=== PATIENT | male | born 1955 | race Caucasian/White ===

== ENCOUNTER 2024-10-28 12:45 | Emergency (ER) | payer MEDICARE, OTHER, MEDICAID, SELFPAY ==
[2024-10-28] VITALS (9 sets, daily range): BP systolic 124–155; BP diastolic 83–90; PULSE 60–63; RESP 14–21; TEMP 36.7; O2SAT 91–98
--- NOTE | ~2024-10-28 | XR_ITS ---
EXAMINATION: XR chest 2V DATE: 10/28/2024 13:37 INDICATION: Weakness TECHNIQUE: AP and lateral views of the chest were obtained. COMPARISON: None FINDINGS: Lung volumes appear decreased on the frontal projection due to lordotic positioning. There is linear bandlike discoid atelectasis at the lingula. No other airspace opacities, pulmonary edema, pleural ef fusion or pneumothorax. Cardiomediastinal silhouette is within normal limits for AP technique. Likely ventriculoperitoneal shunt catheter projects of the right-sided the neck, anterior chest and abdomen . IVC filter projecting anterior to the lumbar spine on the lateral projection. T12 compression fract ure with 40% anterior vertebral body height loss. IMPRESSION: 1. Lingular discoid atelectasis. No other acute cardiopulmonary disease. Reviewed, dictated and finalized at location A. NT DEVELOPMENT ANALYST
[2024-10-28] MEDS: SODIUM CHLORIDE 0.9% IV 1,000 ML 999 ML IV CONT (13:08)
[2024-10-28 13:10] LABS: Basophils Percent Auto 0.4 % (0.2-1.2); Eosinophils Absolute Auto 0.1 K/mm3 (0-0.3); Eosinophils Percent Auto 1.2 % (0-4.4); Hematocrit 35.3 % (42.0-52.0); Hemoglobin 11.5 g/dL (14.0-18.0); Immature Granulocyte Absolute 0.02 K/mm3 (0.00-0.031); Immature Granulocyte Percent A 0.3 % (0-0.5); Lymphocytes Absolute Auto 0.89 K/mm3 (0.9-3.2); Lymphocytes Percent Auto 12.1 % (18.3-44.2); Mean Corpuscular HGB Conc 32.6 g/dl (32-36); Mean Corpuscular Hemoglobin 31.5 pg (26-34); Mean Corpuscular Volume 96.7 fl (80-100); Mean Platelet Volume 11.7 fl (7.4-10.4); Monocytes Absolute Auto 0.5 K/mm3 (0.1-0.6); Monocytes Percent Auto 7.2 % (2.6-8.5); Neutrophils Absolute Auto 5.8 K/mm3 (1.3-6.7); Neutrophils Percent Auto 78.8 % (45.5-73.1); Platelet Count Result 105 k/mm3 (150-375); Red Blood Count 3.65 M/mm3 (4.6-6.20); Red Cell Distribution Width 14.3 % (11.5-14.5); White Blood Count 7.4 K/mm3 (4.5-10.0)
[2024-10-28 13:19] LABS: Alanine Aminotransferase 18 U/L (6-50); Albumin Level 3.3 g/dL (3.5-5.1); Alkaline Phosphatase 129 U/L (38-126); Anion Gap 2 mmol/L (4-12); Aspartate Amino Transferase 36 U/L (17-59); Bilirubin,Total 0.4 mg/dL (0.2-1.3); Blood Urea Nitrogen 17 mg/dL (9-20); Calcium 8.3 mg/dL (8.4-10.2); Carbon Dioxide 28 mmol/L (22-30); Chloride 111 mmol/L (98-107); Estimated CRCL calculation 63 ml/min; Estimated Glomerular Filt Rate > 60; Glucose 245 mg/dL (65-110); Potassium 4.1 mmol/L (3.4-5.0); Sodium 141 mmol/L (137-145)
--- NOTE | 2024-10-28 13:43 | ED_ITS ---
HPI - General Adult General Chief complaint: Unspecified Stated complaint: lethargic Time Seen by Provider: 10/28/24 12:49 History of Present Illness HPI narrative: Patient is a 69-year-old male who presents ER with weakness. He comes from his memory care. Railroad x2. Has no complaints other than feeling tired. He does appear dry. He is denying any pain in his chest or abdomen. He is not struggling to breathe. Related Data Allergies Allergy/AdvReac Type Severity Reaction Status Date / Time No Known Allergies Allergy Verified 10/28/24 13:07 Review of Systems 2 Review of Systems: ROS unobtainable: Yes unobtainable due to mental status PMFSH Past Medical History Medical History (Updated 10/28/24 @ 15:25 by Jorge Myles MD) Chronic diastolic heart failure Depression Anxiety Hx of schizophrenia Hyperlipidemia Diabetes BPH (benign prostatic hyperplasia) Dementia Exam 2 Narrative: GENERAL: Chronically ill-appearing, well-nourished, and in no acute distress. HEAD: Normocephalic, atraumatic. EYES: PERRLA and EOMI. ENT: Dry mucous membranes. CHEST: Clear to auscultation. No respiratory distress. HEART: Regular rate and rhythm. Normal peripheral pulses. ABDOMEN: Soft, nontender, nondistended. EXTREMITIES: Normal range of motion. No edema. SKIN: Warm, dry, no rash. NEURO: Alert and oriented x2. PSYCH: Normal mood and affect. Course Course Emergency Course: Unremarkable evaluation. Patient resting comfortably and still not complaining. No hypoxia. No hypertension. Heart rate stable. Discharge back to facility. Vital Signs Vital signs: Vital Signs Temperature 98.0 F 10/28/24 12:42 Pulse Rate 60 10/28/24 12:42 Respiratory Rate 14 10/28/24 12:42 Blood Pressure 139/87 10/28/24 12:42 Pulse Oximetry 94 10/28/24 12:42 Oxygen Delivery Room Air 10/28/24 12:42 Temperature 98.0 F 10/28/24 12:42 Pulse Rate 60 10/28/24 14:00 Respiratory Rate 21 H 10/28/24 14:00 Blood Pressure 142/83 H 10/28/24 14:00 Pulse Oximetry 98 10/28/24 14:00 Oxygen Delivery Room Air 10/28/24 12:42 Medical Decision Making Vital Signs Vital Signs: Vital Signs Temperature 98.0 F 10/28/24 12:42 Pulse Rate 60 10/28/24 12:42 Respiratory Rate 14 10/28/24 12:42 Blood Pressure 139/87 10/28/24 12:42 Pulse Oximetry 94 10/28/24 12:42 Oxygen Delivery Room Air 10/28/24 12:42 Temperature 98.0 F 10/28/24 12:42 Pulse Rate 60 10/28/24 14:00 Respiratory Rate 21 H 10/28/24 14:00 Blood Pressure 142/83 H 10/28/24 14:00 Pulse Oximetry 98 10/28/24 14:00 Oxygen Delivery Room Air 10/28/24 12:42 Lab Data 10/28/24 13:03 10/28/24 13:03 Labs: Lab Results 10/28/24 10/28/24 Range/Units 13:03 14:03 WBC 7.4 (4.5-10.0) K/mm3 RBC 3.65 L (4.6-6.20) M/mm3 Hgb 11.5 L (14.0-18.0) g/dL Hct 35.3 L (42.0-52.0) % MCV 96.7 (80-100) fl MCH 31.5 (26-34) pg MCHC 32.6 (32-36) g/dl RDW 14.3 (11.5-14.5) % Plt Count 105 L (150-375) k/mm3 MPV 11.7 H (7.4-10.4) fl Immature Gran % (Auto) 0.3 (0-0.5) % Neut % (Auto) 78.8 H (45.5-73.1) % Lymph % (Auto) 12.1 L (18.3-44.2) % [place] % (Auto) 7.2 (2.6-8.5) % Eos % (Auto) 1.2 (0-4.4) % Baso % (Auto) 0.4 (0.2-1.2) % Lymph # (Auto) 0.89 L (0.9-3.2) K/mm3 [place] # (Auto) 0.5 (0.1-0.6) K/mm3 Eos # (Auto) 0.1 (0-0.3) K/mm3 Baso # (Auto) 0.0 (0.0-0.1) K/mm3 Abs Immat Gran (auto) 0.02 (0.00-0.031) K/mm3 Absolute Neuts (auto) 5.8 (1.3-6.7) K/mm3 Absolute Nucleated RBC 0.000 (0.0-0.012) K/mm3 Nucleated RBC % 0.0 (0.0-0.2) % Sodium 141 (137-145) mmol/L Potassium 4.1 (3.4-5.0) mmol/L Chloride 111 H (98-107) mmol/L Carbon Dioxide 28 (22-30) mmol/L Anion Gap 2 L (4-12) mmol/L BUN 17 (9-20) mg/dL Creatinine 1.10 (0.7-1.3) mg/dL Estim Creat Clear Calc 63 ml/min Estimated GFR > 60 (59 - ) Glucose 245 H (65-110) mg/dL Calcium 8.3 L (8.4-10.2) mg/dL Total Bilirubin 0.4 (0.2-1.3) mg/dL AST 36 (17-59) U/L ALT 18 (6-50) U/L Alkaline Phosphatase 129 H (38-126) U/L Total Protein 7.0 (6.3-8.2) g/dL Albumin 3.3 L (3.5-5.1) g/dL Urine Color Yellow (Yellow) Urine Appearance Clear (Clear) Urine pH 5.5 (5.0-9.0) Ur Specific [place] 1.011 (1.001-1.035) Urine Protein Negative (Negative) mg/dL Urine Glucose (UA) Negative (Negative) mg/dL Urine Ketones Negative (Negative) mg/dL Ur Blood (Man) Negative (Negative) Urine Nitrate Negative (Negative) Urine Bilirubin Negative (Negative) Urine Urobilinogen 1.0 (<2.0) mg/dL Leukocyte Esterase Rfl Negative (Negative) LENI/UL Influenza A (RT-PCR) Negative (Negative) Influenza B (RT-PCR) Negative (Negative) RSV (RT-PCR) Negative (Negative) SARS-CoV-2 RNA (RT-PCR) Negative (Negative) Imaging Data Radiologist's impression: ITS Impressions Chest X-Ray 01/01/25 13:45 IMPRESSION: 1. Lingular discoid atelectasis. No other acute cardiopulmonary disease. Discharge Plan Discharge Clinical Impression: Fatigue Patient Disposition: Home, Self-Care Condition: Stable Instructions: Fatigue (ED) Additional Instructions: Please return to the emergency department if you develop severe and persistent chest pain, difficulty breathing, dizziness, leg swelling or if you are coughing up blood as these can be signs of a medical emergency. Please call your doctor for a follow up appointment to determine the need for further testing. Patient Language: [place] Follow-up/Referrals: Leonel,MD Branden [Primary Care Provider] -
[2024-10-28 14:11] LABS: Influenza A QL RT-PCR Negative (Negative); Influenza B QL RT-PCR Negative (Negative); RSV RNA, RT-PCR Negative (Negative); SARS-CoV-2 RNA PCR Negative (Negative)
[2024-10-28 14:14] LABS: Add Urine Microscopic? NO; Appearance Urine Clear (Clear); Bilirubin Urine Negative (Negative); Blood Urine Negative (Negative); Color Urine Yellow (Yellow); Glucose Urine UA Negative (Negative); Ketones Urine Negative (Negative); Leukocyte Esterase Ur Negative LEU/UL (Negative); Nitrate Urine Negative (Negative); Protein Urine Negative (Negative); Specific Grav Ur 1.011 (1.001-1.035); pH Urine 5.5 (5.0-9.0)
== END 2024-10-28 17:16 ==
PROVIDERS: Emergency Provider Emergency Medicine; PCP Internal Medicine
DX: R53.83 Other fatigue (principal); Z20.822 Contact with and (suspected) exposure to COVID-19; I50.32 Chronic diastolic (congestive) heart failure; E11.9 Type 2 diabetes mellitus without complications; E78.5 Hyperlipidemia, unspecified; N40.0 Benign prostatic hyperplasia without lower urinary tract symptoms; F03.90 Unspecified dementia, unspecified severity, without behavioral disturbance, psychotic disturbance, mood disturbance, and anxiety
CPT/HCPCS: 36415; 71046; 80053; 81003; 85025; 87637; 96360; 99283; J2003; J7030